=== PATIENT | male | born 1960 | race Caucasian/White ===

== ENCOUNTER → 2021-10-30 15:22 | Outpatient (CLI) | payer MEDICARE, SELFPAY ==
[2021-10-30 13:18] LABS: Amphetamine/Metha Screen,Urine Negative ng/ml (<1000); Barbiturates Screen,Urine Negative ng/ml (<200)
[2021-10-30 13:19] LABS: Benzodiazepines Screen,Urine Negative ng/ml (<200)
[2021-10-30 13:20] LABS: Cannabinoid Screen,Urine Negative ng/ml (<50); Cocaine Screen,Urine Negative ng/ml (<300)
[2021-10-30 13:21] LABS: Methadone Screen,Urine Negative ng/ml (<300)
[2021-10-30 13:22] LABS: Opiate Screen,Urine Negative ng/ml (<300); Phencyclidine Screen,Urine Negative ng/ml (<25)
== END ==
PROVIDERS: Visit Provider Emergency Medicine
DX: M51.36 Other intervertebral disc degeneration, lumbar region (principal)
CPT/HCPCS: 80305

== ENCOUNTER → 2022-02-25 10:25 | Outpatient (CLI) | payer MEDICARE, SELFPAY ==
[2022-02-25 17:54] LABS: Amphetamine/Metha Screen,Urine Negative ng/ml (<1000)
[2022-02-25 17:55] LABS: Barbiturates Screen,Urine Negative ng/ml (<200); Benzodiazepines Screen,Urine Negative ng/ml (<200)
[2022-02-25 17:56] LABS: Cannabinoid Screen,Urine Negative ng/ml (<50)
[2022-02-25 17:57] LABS: Cocaine Screen,Urine Negative ng/ml (<300); Methadone Screen,Urine Negative ng/ml (<300)
[2022-02-25 17:58] LABS: Opiate Screen,Urine Positive ng/ml (<300)
[2022-02-25 17:59] LABS: Phencyclidine Screen,Urine Negative ng/ml (<25)
== END ==
PROVIDERS: PCP Emergency Medicine; Visit Provider Emergency Medicine
DX: M51.36 Other intervertebral disc degeneration, lumbar region (principal)
CPT/HCPCS: 80305

== ENCOUNTER → 2022-03-11 06:12 | Outpatient (CLI) | payer MEDICARE, SELFPAY ==
--- NOTE | 2022-03-11 06:14 | CA_ITS ---
APPROVED REPORT EXAM: Comprehensive 2D, Doppler, and color-flow Echocardiogram Accounts Payable Or Receivable Clerk: Olga Sepulveda CRT Ht: 5 ft 10 in Wt: 218lbs BSA: 2.17 BP: 111/72 mmHg Indications: Abnormal ECG, COPD, Shortness of Breath, CAD, Hyperlipidemia, Hypertension/HDD 2D Dimensions LVOT 2.01 cm (M/F) 1.5-2.5 LA Volume 29.10 mL LA Volume Index 13.10 mL/m2 (M/F) 16-34 M-Mode Dimensions RVDd 2.41 cm (0.9-2.6) LA Diam 3.79 cm (1.9-4.0) LVDd 5.67 cm (3.5-5.7) Ao Diam 3.73 cm (2.0-3.7) LVDs 3.70 cm (3.5-5.7) IVSd 1.09 cm (0.6-1.1) PWd 0.92 cm (0.6-1.1) EF (Teich) 63.30% FS 34.70% EDV (Teich) 158.10 mL TAPSE 2.26 (<1.7) ESV (Teich) 58.10 mL LV Diastology E Decel Time 157.00 (160-240 msec) E/A Ratio 0.91 MED E' 8.20 (< 7 cm/sec) MED A' 10.80 cm/s E'/MED E' Ratio 9.27 (>14) LAT E' 7.00 (<10 cm/sec) LAT A' 11.20 cm/s E/LAT E' Ratio 10.86 (>14) Aortic Valve AI PHT 377.00 ms AO Peak GR. 9.30 mmHg Mitral Valve MV A Velocity 83.00 (40-130 cm/s) E/A Ratio 0.91 MV Decel. Time 157.00 (160-240 ms) Pulmonary Valve PV Peak Velocity 105.00 (50-150 cm/s) Tricuspid Valve TR P. Velocity 211.00 cm/s RAP Estimate 10.00 mmHg RVSP 27.90 mmHg Left Ventricle Left atrium is normal size, left ventricle is normal size, there is no concentric left ventricular hypertrophy, estimated ejection fraction 55% with no regional wall motion abnormality, diastolic parameters are within normal range. Right Ventricle Right atrium and right ventricle are normal size and contractility. Aortic Valve Aortic valve is thickened and calcified without aortic stenosis, there is trace aortic insufficiency. Mitral Valve Mitral valve grossly normal, there is trace mitral regurgitation. Tricuspid Valve Tricuspid valve grossly normal, there is trace tricuspid regurgitation, tricuspid regurgitation jet velocity is inadequate for calculation of the right ventricular systolic pressure. Pulmonic Valve Pulmonic valve is poorly visualized. Great Vessels Aortic root is normal size. Inferior vena cava is poorly visualized. Pericardium No significant pericardial effusion noted. Conclusion 1. Normal left ventricular size preserved left ventricular systolic function, estimated ejection fraction 55% with no regional wall motion abnormality, diastolic parameters are within normal range. 2. Trace mitral and tricuspid regurgitation. 3. No significant pericardial effusion noted. 4. Inferior vena cava is poorly visualized. Electronically signed by : Andrés Davis MD 03/11/2022 16:42:46
--- NOTE | 2022-03-11 06:14 | CA_ITS ---
APPROVED REPORT Exam: Pharmacologic Technologist: Sapna Faustin, Ht: 5 ft 10 in Wt: 218 lbs BSA: 2.17 m2 HR: 57 bpm BP: 119/67 mmHg Medical History Medications: Aspirin,,,,, Metoprolol,,,,, Losartan,,,,, PERCOCET,,,,, Albuterol,,,,, Nirostat,,,,, KloNOPIN,,,,, Trazodone,,,,, RoSUVASTATIN,,,,, TAMULOSIN,,,,, Hydroxyzine HCI,,,,, ANoro Ellipta,,,,, Stress Test Details Test: LEXISCAN Reason for pharmacologic stress test: physical limitation. HR Resting HR: 70 bpm Max Heart Rate (APMHR): 161 bpm Max HR Achieved: 105 bpm Target HR (85% APMHR): 136 bpm % of APMHR: 65 Recovery HR: 71 bpm BP Resting BP: 119/67 mmHg Max BP: 133/75 mmHg Recovery BP: 122.0/79.0 mmHg ECG Resting ECG: SR Clinical Exercise duration: 04:00 min Highest Stage Achieved: Exercise capacity: 1.0 METs Stress ECG Conclusion Symptoms: SOB w/ Lexiscan. No chest pain. Arrhythmias/Ectopy: None. ST-T Changes: <1.5mm ST segment depression. Conclusion: Electronically signed by : Andrés Davis MD 03/11/2022 20:54:54
--- NOTE | 2022-03-11 06:14 | NM_ITS ---
APPROVED REPORT Exam: Nuclear Stress Test Indication: SOB, Abnormal EKG, HTN, High cholesterol, Family history Patient Location: Outpatient Stress Tech: Sapna Wheeler NE Tech:Martha Stanford, ARRT, RT (R)(N) Ht: 5 ft 10 in Wt: 215 lbs HR: 70 bpm BP: 119/67 mmHg BSA: 2.15 m2 TID: 1.18 BMI: 30.8 History: SOB, Abnormal EKG, HTN, High cholesterol, Family history Procedure: Patient received a 0.4 mg of intravenous Lexiscan, resting heart rate 70 bpm, resting blood pressure 119/67 mmHg, with Lexiscan maximum heart rate achived was 105 bpm which is % of the maximum predicted heart rate and blood pressure was 133/75 mmHg. With Lexiscan, patient denied any complaint of chest pain. Electrocardiogram Resting electrocardiogram shows sinus rhythm right ventricular conduction delay, with Lexiscan there is less than 1.[address] segment depression noted from the baseline EKG. The EKG portion of the Lexiscan is nondiagnostic. Cardiac Stress and Resting SPECT Images: Cardiac Stress and Resting SPECT images were obtained using technetium 99m Myoview 29.2 mCi stress and 9.95 mCi at rest. Gated SPECT for analysis of segmental wall motion and calculation of the ejection fraction also done. Prone images were also obtained. Cardiac stress and resting SPECT images show reversible ischemia involving the inferolateral and lateral wall, computer derived ejection fraction is 51% with no regional wall motion abnormality, right ventricle is normal size and contractility. Conclusion: 1. The EKG portion of the Lexiscan is nondiagnostic. 2. Scintigraphic evidence of reversible ischemia involving the inferolateral and lateral wall, computer derived ejection fraction is 51% with no regional wall motion abnormality, right ventricle is normal size and contractility. 3. Abnormal Lexiscan Myoview study. Electronically signed by : Andrés Davis MD 03/11/2022 20:57:43
--- NOTE | 2022-03-11 08:26 | HMH.ITSHM ---
Current Home Medications as stated by this patient Rafael Verma or solar sales representative and assessor. []TRELEGY METOPROLOL LOSARTAN ASA ROSUVASTATIN TAMSULOSIN OXYCODONE CLONAZEPAM
== END ==
PROVIDERS: PCP Emergency Medicine; Visit Provider Nurse Practitioner Family
DX: E78.5 Hyperlipidemia, unspecified (principal); I10 Essential (primary) hypertension; I21.9 Acute myocardial infarction, unspecified; I25.10 Atherosclerotic heart disease of native coronary artery without angina pectoris; R06.00 Dyspnea, unspecified; R94.31 Abnormal electrocardiogram [ECG] [EKG]
CPT/HCPCS: 78452; 93017; 93306; A9502; J2785

== ENCOUNTER → 2022-03-13 09:21 | Outpatient (CLI) | payer MEDICARE, SELFPAY ==
[2022-03-13 09:39] LABS: Basophils # 0.1 K/mm3 (0-0.2); Basophils % 1.3 % (0.1-2.0); Eosinophils # 0.4 K/mm3 (0.0-0.4); Eosinophils % 4.6 % (0.1-12.0); Hemoglobin 14.3 g/dL (14.1-18.0); Lymphocytes % 23.6 % (10-50); Mean Corpuscular HGB Conc 32.5 g/dL (31.8-35.4); Mean Corpuscular Hemoglobin 29.5 pg (27.0-31.2); Mean Corpuscular Volume 90.9 fl (80-94); Monocytes # 0.5 K/mm3 (0.1-1.0); Monocytes % 5.6 % (1.7-9.3); Neutrophils # 5.6 K/mm3 (1.8-7.8); Neutrophils % 64.9 % (37.0-80.0); Platelet Count 174 K/mm3 (142-424); Red Blood Count 4.84 M/mm3 (4.60-6.20); White Blood Count 8.7 K/mm3 (4.8-10.8)
[2022-03-13 10:14] LABS: Anion Gap 13.7 mEq/L (5-15); Blood Urea Nitrogen 16 mg/dl (9-20); Calcium 9.8 mg/dl (8.4-10.2); Carbon Dioxide 32 mmol/L (22.0-30.0); Chloride 100 mmol/L (98-107); Estimated Glomerular Filt Rate 86 ml/min (>60); GFR (African American) 105 ML/MIN (>60); Glucose 72 mg/dl (74-100); Potassium 4.7 mmoL/L (3.5-5.1); Sodium 141 mmol/L (136-145)
== END ==
PROVIDERS: PCP Emergency Medicine; Visit Provider Physician Assistant
DX: E78.5 Hyperlipidemia, unspecified (principal); I10 Essential (primary) hypertension; I25.118 Atherosclerotic heart disease of native coronary artery with other forms of angina pectoris; R06.02 Shortness of breath; R94.30 Abnormal result of cardiovascular function study, unspecified; R94.31 Abnormal electrocardiogram [ECG] [EKG]
CPT/HCPCS: 36415; 80048; 85025

== ENCOUNTER 2022-03-18 08:40 | Day surgery (SDC) | payer MEDICARE, SELFPAY ==
[2022-03-18] VITALS (11 sets, daily range): BP systolic 91–145; BP diastolic 48–81; PULSE 45–65; RESP 18–20; O2SAT 90–100; BMI 31.7
--- NOTE | 2022-03-18 09:06 | IR_ITS ---
APPROVED REPORT Patient Location: Outpatient PROCEDURES Left heart catheterization Left ventriculogram Selective coronary angiogram INDICATION Abnormal Myoview, Angina pectoris Informed consent was obtained prior to the procedure. COMPLICATIONS None Estimated Blood Loss: Less than 10 mls TECHNIQUE One percent lidocaine used to anesthetize the right anterior aspect of the wrist. The right radial artery was accessed via the Seldinger technique. A 6 [place] sheath was placed in the right radial artery. 2.5 mg of verapamil, 800 mcg of nitroglycerin, 1mg Lidocaine and 5000 U Heparin were given through the arterial sheath. The papa catheter was also used to perform left heart catheterization, left ventriculogram and selective coronary angiogram. At the end of the procedure the sheath was removed good hemostasis was achieved using Traclet band, patient was transferred to the postop holding area in stable condition. ANGIOGRAPHIC RESULTS The left main artery Normal The left anterior descending artery Has mild proximal 10% luminal irregularities with remaining vessel normal The circumflex artery Nondominant with mild 10% luminal irregularities The right coronary artery Dominant with a proximal concentric 20 to 30% stenosis and a mid vessel 10% stenosis The MAIER ventriculogram reveals Normal 65% The left ventricular end-diastolic pressure 15 mmHg IMPRESSION Mild nonflow limiting coronary disease Normal ejection fraction Borderline LVEDP PLAN 1. Medical management Electronically signed by : Tim Casillas MD 03/18/2022 09:52:06
== END 2022-03-18 12:50 | disposition home or self-care (01) ==
PROVIDERS: PCP Emergency Medicine; Visit Provider Internal Medicine
DX: R94.39 Abnormal result of other cardiovascular function study (principal); I25.118 Atherosclerotic heart disease of native coronary artery with other forms of angina pectoris; Z79.899 Other long term (current) drug therapy; J44.9 Chronic obstructive pulmonary disease, unspecified; Z95.5 Presence of coronary angioplasty implant and graft
CPT/HCPCS: 93458; 99152; C1725; C1769; J1644; Q9967

== ENCOUNTER → 2022-04-15 13:02 | Outpatient (CLI) | payer MEDICARE, SELFPAY ==
--- NOTE | 2022-04-15 13:08 | CT_ITS ---
FINAL REPORT TECHNIQUE: Postcontrast axial images of the chest were performed in a CTA protocol. This study was performed with techniques to keep radiation doses as low as reasonably achievable, (ALARA). Individualized dose reduction technique using automated exposure control or adjustment of mA and/or kV according to the patient's size were employed. CLINICAL HISTORY: Lung nodules and PE FINDINGS: The heart is normal in size. No adenopathy is identified. No pleural or pericardial effusion is identified. The thoracic aorta is normal in caliber with no focal aneurysm or dissection identified. There is no filling defect to suggest pulmonary embolism. There is mild emphysema in pleural scarring. Mild atelectasis is seen. There is a ground-glass nodule in left upper lobe as well as several other, less than 5 mm nodules. Lungs are otherwise clear. The images of the upper abdomen are unremarkable. IMPRESSION: No evidence for PE on this exam. Several, less than 5 mm ground-glass nodules Reviewed, Interpreted and Dictated by Francisco J Orozco III, MD Transcribed by Patricia Ramirez Authenticated and [facility]
[2022-04-15 14:25] LABS: Blood Urea Nitrogen 15 mg/dl (9-20); Estimated Glomerular Filt Rate 69 ml/min (>60); GFR (African American) 83 ML/MIN (>60)
[2022-04-15 15:35] VITALS: PULSE 76; PULSE 80
== END ==
PROVIDERS: PCP Emergency Medicine; Visit Provider Internal Medicine Pulmonary Disease
DX: R06.09 Other forms of dyspnea (principal)
CPT/HCPCS: 36415; 71275; 82565; 84520; 94060; 94618; 94640; 94727; 94729; Q9967

== ENCOUNTER → 2022-04-22 14:08 | Outpatient (CLI) | payer MEDICARE, SELFPAY ==
[2022-04-22 14:28] LABS: Amphetamine/Metha Screen,Urine Negative ng/ml (<1000); Barbiturates Screen,Urine Negative ng/ml (<200)
[2022-04-22 14:29] LABS: Benzodiazepines Screen,Urine Negative ng/ml (<200); Cannabinoid Screen,Urine Negative ng/ml (<50)
[2022-04-22 14:30] LABS: Cocaine Screen,Urine Negative ng/ml (<300)
[2022-04-22 14:31] LABS: Methadone Screen,Urine Negative ng/ml (<300)
[2022-04-22 14:32] LABS: Opiate Screen,Urine Positive ng/ml (<300); Phencyclidine Screen,Urine Negative ng/ml (<25)
== END ==
PROVIDERS: PCP Emergency Medicine; Visit Provider Emergency Medicine
DX: M51.36 Other intervertebral disc degeneration, lumbar region (principal)
CPT/HCPCS: 80305

== ENCOUNTER → 2022-06-21 14:27 | Outpatient (CLI) | payer MEDICARE, SELFPAY ==
[2022-06-21 15:36] LABS: Amphetamine/Metha Screen,Urine Negative ng/ml (<1000); Barbiturates Screen,Urine Negative ng/ml (<200); Benzodiazepines Screen,Urine Negative ng/ml (<200); Cannabinoid Screen,Urine Negative ng/ml (<50); Cocaine Screen,Urine Negative ng/ml (<300); Methadone Screen,Urine Negative ng/ml (<300); Opiate Screen,Urine Negative ng/ml (<300); Phencyclidine Screen,Urine Negative ng/ml (<25)
== END ==
PROVIDERS: PCP Emergency Medicine; Visit Provider Emergency Medicine
DX: M51.36 Other intervertebral disc degeneration, lumbar region (principal)
CPT/HCPCS: 80305

== ENCOUNTER → 2022-08-14 08:30 | Outpatient (CLI) | payer MEDICARE, SELFPAY ==
[2022-08-14 18:34] LABS: Amphetamine/Metha Screen,Urine Negative ng/ml (<1000); Barbiturates Screen,Urine Negative ng/ml (<200)
[2022-08-14 18:36] LABS: Benzodiazepines Screen,Urine Negative ng/ml (<200)
[2022-08-14 18:37] LABS: Cannabinoid Screen,Urine Negative ng/ml (<50)
[2022-08-14 18:38] LABS: Cocaine Screen,Urine Negative ng/ml (<300); Methadone Screen,Urine Negative ng/ml (<300)
[2022-08-14 18:39] LABS: Opiate Screen,Urine Positive ng/ml (<300); Phencyclidine Screen,Urine Negative ng/ml (<25)
== END ==
PROVIDERS: PCP Emergency Medicine; Visit Provider Emergency Medicine
DX: M51.36 Other intervertebral disc degeneration, lumbar region (principal)
CPT/HCPCS: 80305

== ENCOUNTER → 2022-10-11 09:57 | Outpatient (CLI) | payer MEDICARE, SELFPAY ==
[2022-10-11 19:47] LABS: Amphetamine/Metha Screen,Urine Negative ng/ml (<1000)
[2022-10-11 19:48] LABS: Barbiturates Screen,Urine Negative ng/ml (<200); Cannabinoid Screen,Urine Negative ng/ml (<50)
[2022-10-11 19:49] LABS: Benzodiazepines Screen,Urine Negative ng/ml (<200)
[2022-10-11 19:51] LABS: Methadone Screen,Urine Negative ng/ml (<300)
[2022-10-11 19:52] LABS: Cocaine Screen,Urine Negative ng/ml (<300); Opiate Screen,Urine Positive ng/ml (<300)
[2022-10-11 19:53] LABS: Phencyclidine Screen,Urine Negative ng/ml (<25)
== END ==
PROVIDERS: PCP Emergency Medicine; Visit Provider Emergency Medicine
DX: M51.36 Other intervertebral disc degeneration, lumbar region (principal)
CPT/HCPCS: 80305

== ENCOUNTER → 2022-10-28 11:52 | Outpatient (CLI) | payer MEDICARE, SELFPAY ==
[2022-10-28 12:40] VITALS: PULSE 85; PULSE 90
== END ==
PROVIDERS: PCP Emergency Medicine; Visit Provider Internal Medicine Pulmonary Disease
DX: R06.09 Other forms of dyspnea (principal)
CPT/HCPCS: 94060; 94618; 94640; 94727; 94729

== ENCOUNTER → 2022-12-10 15:33 | Outpatient (CLI) | payer MEDICARE, SELFPAY ==
[2022-12-10 14:08] LABS: Phencyclidine Screen,Urine Negative ng/ml (<25)
[2022-12-10 14:14] LABS: Amphetamine/Metha Screen,Urine Negative ng/ml (<1000)
[2022-12-10 14:16] LABS: Benzodiazepines Screen,Urine Negative ng/ml (<200); Cannabinoid Screen,Urine Negative ng/ml (<50)
[2022-12-10 14:19] LABS: Cocaine Screen,Urine Negative ng/ml (<300); Opiate Screen,Urine Positive ng/ml (<300)
[2022-12-10 14:20] LABS: Methadone Screen,Urine Negative ng/ml (<300)
[2022-12-10 18:32] LABS: Barbiturates Screen,Urine Negative ng/ml (<200)
== END ==
PROVIDERS: PCP Emergency Medicine; Visit Provider Emergency Medicine
DX: M51.36 Other intervertebral disc degeneration, lumbar region (principal)
CPT/HCPCS: 80305

== ENCOUNTER 2023-01-27 09:00 | Outpatient (RCR) | payer MEDICARE, SELFPAY ==
--- NOTE | 2023-01-22 09:53 | HMH.PTOPEV ---
PT Outpatient Evaluation Rehab PT Outpatient Evaluation Start: 01/22/23 07:53 Freq: Status: Active Protocol: Document 01/22/23 07:55 PDESEROUX (Rec: 01/22/23 09:53 PDESEROUX [id number]) E-signed By Nolan Thompson, PT Outpatient Therapy Subjective History Subjective History Pt. is a 62 year old male who presents to [facility] in [place] for the initial evaluation this date(01/22/23) w/ c/o chronic and constant lumbar spine P!, locking up, and stiffness of insidious onset since 2006. 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 in 2006. Pt. denies any trauma-related event as VERENA to current complaint of LBP!. Pt. reports most recent diagnostic imaging in 2018 indicated lumbar spine disc pathology. Pt. denies having any steroid injections for c/o lumbar spine pain previously. Pt. denies having any surgeries related to the lumbar spine pain. Pt. reports symptoms are manageable w/ pain medicine and using a MHP when symptoms get severe. Pt. reports bending over to pick objects up off the floor worsen symptoms, states the lumbar spine will intermittently lock up. Pt. denies any numbness/tingling into neither BLEs nor saddle paresthesia/dania nor bladder dysfunction at this time. Pt. RTMD next week. Current medications include Oxycodone, Rosuvastatin, Losartan, and Metoprolol. PMH includes COPD, Myocardial Infarction x 1 in 2013, and cardiac stent placement x 1. New diagnosis of cancer in past 12 No months? Chief Complaint Pain,Spasms,Stiff,Catches/
== END 2023-03-11 10:23 | disposition home or self-care (01) ==
LOC: PT 09:00
PROVIDERS: PCP Emergency Medicine; Visit Provider Emergency Medicine
DX: M54.50 Low back pain, unspecified (principal)
CPT/HCPCS: 97010; 97014; 97110; 97140; 97163; G0283

== ENCOUNTER → 2023-01-29 11:00 | Outpatient (CLI) | payer MEDICARE, SELFPAY ==
[2023-01-29 23:49] LABS: Amphetamine/Metha Screen,Urine Negative ng/ml (<1000)
[2023-01-29 23:51] LABS: Benzodiazepines Screen,Urine Negative ng/ml (<200); Cannabinoid Screen,Urine Negative ng/ml (<50)
[2023-01-29 23:52] LABS: Cocaine Screen,Urine Negative ng/ml (<300)
[2023-01-29 23:53] LABS: Methadone Screen,Urine Negative ng/ml (<300)
[2023-01-29 23:54] LABS: Opiate Screen,Urine Positive ng/ml (<300); Phencyclidine Screen,Urine Negative ng/ml (<25)
[2023-01-30 00:09] LABS: Barbiturates Screen,Urine Negative ng/ml (<200)
== END ==
PROVIDERS: PCP Emergency Medicine; Visit Provider Emergency Medicine
DX: M51.36 Other intervertebral disc degeneration, lumbar region (principal); Z79.899 Other long term (current) drug therapy
CPT/HCPCS: 80305

== ENCOUNTER → 2023-04-21 23:17 | Outpatient (CLI) | payer MEDICARE, SELFPAY ==
[2023-04-21 21:30] LABS: Microalbumin/Creatinine Ratio 11.2
[2023-04-21 21:37] LABS: Amphetamine/Metha Screen,Urine Negative ng/ml (<1000)
[2023-04-21 21:38] LABS: Barbiturates Screen,Urine Negative ng/ml (<200); Benzodiazepines Screen,Urine Negative ng/ml (<200)
[2023-04-21 21:39] LABS: Cannabinoid Screen,Urine Negative ng/ml (<50)
[2023-04-21 21:41] LABS: Cocaine Screen,Urine Negative ng/ml (<300); Creatinine,Urine Random 246 mg/dL (Not Estab.)
[2023-04-21 21:42] LABS: Methadone Screen,Urine Negative ng/ml (<300); Opiate Screen,Urine Positive ng/ml (<300)
[2023-04-21 21:44] LABS: Phencyclidine Screen,Urine Negative ng/ml (<25)
== END ==
PROVIDERS: PCP Physician Assistant; Visit Provider Internal Medicine
DX: M54.16 Radiculopathy, lumbar region; Z79.899 Other long term (current) drug therapy
CPT/HCPCS: 80305; 82043; 82570

== ENCOUNTER → 2023-05-01 09:58 | Outpatient (CLI) | payer MEDICARE, SELFPAY ==
--- NOTE | 2023-05-01 09:58 | MR_ITS ---
FINAL REPORT CLINICAL HISTORY: chronic low back pain. NKI. Hx of DDD. COMPARISON: None FINDINGS: Multiplanar MR imaging of the lumbar spine was performed without contrast. On the sagittal T2-weighted images, there is abnormal decreased signal at L3-4 and L4-5. There is moderate loss of height at L4-5. The vertebral alignment is normal. L1-2: There is no significant canal stenosis or neural foraminal narrowing. L2-3: There is no significant canal stenosis or neural foraminal narrowing. L3-4: Mild diffuse disc bulge. Mild bilateral neuroforaminal narrowing. L4-5: Mild diffuse disc bulge. Small midline protrusion with annular tear. Mild spinal canal compromise. Mild bilateral neuroforaminal narrowing. L5-S1: There is no significant canal stenosis or neural foraminal narrowing. IMPRESSION: Disc bulges at L3-4 and L4-5 with mild bilateral neuroforaminal narrowing. Small midline protrusion with annular tear and spinal canal compromise at L4-5. Reviewed, Interpreted and Dictated by Clement Ferrer MD Transcribed by Michelle Rocha Authenticated and [facility] [place]
== END ==
LOC: RAD 09:58
PROVIDERS: PCP Physician Assistant; Visit Provider Nurse Practitioner Family
DX: M54.16 Radiculopathy, lumbar region (principal)
CPT/HCPCS: 72148; 76376

== ENCOUNTER 2023-06-02 17:53 | Outpatient (CLI) | payer MEDICARE, SELFPAY ==
[2023-06-02 17:57] LABS: Basophils % 0.1 % (0.1-2.0); Eosinophils # 0.1 K/mm3 (0.0-0.4); Eosinophils % 0.7 % (0.1-12.0); Hematocrit 45.2 % (42.0-52.0); Lymphocytes # 1.6 K/mm3 (0.7-4.5); Lymphocytes % 12.8 % (10-50); Mean Corpuscular HGB Conc 33.1 g/dL (31.8-35.4); Mean Corpuscular Volume 90.7 fl (80-94); Mean Platelet Volume 10.8 fl (7.4-10.4); Monocytes # 0.4 K/mm3 (0.1-1.0); Monocytes % 3.4 % (1.7-9.3); Neutrophils # 10.3 K/mm3 (1.8-7.8); Platelet Count 174 K/mm3 (142-424); Red Blood Count 4.99 M/mm3 (4.60-6.20); Red Cell Distribution Width 14.1 % (11.5-17.5); White Blood Count 12.4 K/mm3 (4.8-10.8)
[2023-06-02 19:49] LABS: Alanine Aminotransferase 23 U/L (12-78); Albumin Level 3.9 g/dl (3.5-5.0); Albumin/Globulin Ratio 1.4 (1.1-1.8); Alkaline Phosphatase 91 U/L (38-126); Anion Gap 12.5 mEq/L (5-15); Aspartate Amino Transferase 29 U/L (17-59); Bilirubin,Total 0.9 mg/dl (0.2-1.3); Blood Urea Nitrogen 17 mg/dl (9-20); Calcium 8.6 mg/dl (8.4-10.2); Carbon Dioxide 27 mmol/L (22.0-30.0); Chloride 105 mmol/L (98-107); Chol/HDL Ratio 2.8 (1-3.5); Cholesterol 123 mg/dl (140-200); Estimated Glomerular Filt Rate 86 ml/min (>60); GFR (African American) 104 ML/MIN (>60); Globulin 2.8 g/dL (1.3-3.2); Glucose 119 mg/dl (74-100); HDL Cholesterol 44 mg/dl (40-60); Potassium 4.5 mmoL/L (3.5-5.1); Sodium 140 mmol/L (136-145); Total Protein,Serum 6.7 g/dl (6.3-8.2); Triglycerides 119 mg/dl (30-150); VLDL Cholesterol 24 mg/dL (0-40)
[2023-06-02 22:43] LABS: 25-OH Vitamin D, Total 22.7 ng/mL (30-100)
[2023-06-02 22:56] LABS: Prostate Specific Ag Screen 0.4 ng/ml (0.0-4.0); Thyroid Stimulating Hormone 2.43 uIU/mL (0.465-4.68)
== END 2023-06-02 23:59 ==
LOC: LAB.DROPOF 17:54
PROVIDERS: PCP Student in an Organized Health Care Education/Training Program; Visit Provider Student in an Organized Health Care Education/Training Program
DX: E55.9 Vitamin D deficiency, unspecified (principal); Z12.5 Encounter for screening for malignant neoplasm of prostate; I25.10 Atherosclerotic heart disease of native coronary artery without angina pectoris; I10 Essential (primary) hypertension; Z68.32 Body mass index [BMI] 32.0-32.9, adult; Z87.891 Personal history of nicotine dependence
CPT/HCPCS: 80053; 80061; 82306; 84443; 85025; G0103

== ENCOUNTER 2023-06-11 14:46 | Outpatient (CLI) | payer MEDICARE, SELFPAY ==
[2023-06-11 15:03] LABS: Influenza A, PCR Not Detected (NotDetected); Influenza B, PCR Not Detected (NotDetected)
[2023-06-11 16:00] LABS: Coronavirus 19, PCR Detected (NotDetected)
== END 2023-06-11 23:59 ==
LOC: LAB.DROPOF 14:47
PROVIDERS: PCP Nurse Practitioner Family; Visit Provider Nurse Practitioner Family
DX: Z20.822 Contact with and (suspected) exposure to COVID-19 (principal); J02.9 Acute pharyngitis, unspecified; U07.1 COVID-19
CPT/HCPCS: 87070; 87636

== ENCOUNTER 2023-07-03 08:44 | Outpatient (CLI) | payer MEDICARE, SELFPAY ==
--- NOTE | 2023-07-03 08:44 | XR_ITS ---
FINAL REPORT CLINICAL HISTORY: osteoporosis FINDINGS: Using L1-4, the bone mineral density of the spine is 1.017 g/cm2, corresponding to T-score of -0.7 which is within the normal range. Using the left hip, the bone mineral density of the femoral neck is 0.763 g/cm2, corresponding to a T-score of -1.2 which is within the normal range. Using the right hip: The bone mineral density of the femoral neck is 0.712 g/cm2, corresponding to a T-score of -1.6 which is within the osteopenic range. FRAX 10 year fracture risk is 5.8% for a hip fracture and 0.7% for a major osteoporotic fracture. IMPRESSION: Normal bone mineral density in the lumbar spine and left hip. Osteopenic bone mineral density in the right hip. NOTE: T-score: Standard deviation compared with peak bone mass of young adult mean. *Following the recommendations of the International Society of Bone densitometry, classification of hip BMD is based on the lower of two T-scores; total hip or femoral neck. Reviewed, Interpreted and Dictated by Clement Ferrer MD Transcribed by Tasneem Mora Authenticated and [facility]
== END 2023-07-03 23:59 ==
LOC: RAD 08:44
PROVIDERS: PCP Internal Medicine; Visit Provider Internal Medicine
DX: M85.89 Other specified disorders of bone density and structure, multiple sites (principal)
CPT/HCPCS: 77080

== ENCOUNTER 2023-09-25 12:41 | Outpatient (CLI) | payer MEDICARE, SELFPAY ==
[2023-09-25 18:22] LABS: Basophils # 0.1 K/mm3 (0-0.2); Basophils % 0.6 % (0.1-2.0); Eosinophils # 0.2 K/mm3 (0.0-0.4); Eosinophils % 2.8 % (0.1-12.0); Hematocrit 45.1 % (42.0-52.0); Hemoglobin 14.5 g/dL (14.1-18.0); Lymphocytes # 2.1 K/mm3 (0.7-4.5); Lymphocytes % 25.9 % (10-50); Mean Corpuscular HGB Conc 32.1 g/dL (31.8-35.4); Mean Corpuscular Hemoglobin 29.2 pg (27.0-31.2); Mean Corpuscular Volume 90.9 fl (80-94); Mean Platelet Volume 10.7 fl (7.4-10.4); Monocytes # 0.5 K/mm3 (0.1-1.0); Monocytes % 6.5 % (1.7-9.3); Neutrophils # 5.1 K/mm3 (1.8-7.8); Neutrophils % 64.2 % (37.0-80.0); Platelet Count 159 K/mm3 (142-424); Red Blood Count 4.96 M/mm3 (4.60-6.20); Red Cell Distribution Width 14.5 % (11.5-17.5)
[2023-09-25 19:06] LABS: 25-OH Vitamin D, Total 26.5 ng/mL (30-100)
== END 2023-09-25 23:59 | disposition home or self-care (01) ==
LOC: LAB.DROPOF 09-26 12:42
PROVIDERS: PCP Internal Medicine; Visit Provider Internal Medicine
DX: E55.9 Vitamin D deficiency, unspecified (principal); Z68.31 Body mass index [BMI] 31.0-31.9, adult
CPT/HCPCS: 82306; 85025

== ENCOUNTER 2024-02-20 14:03 | Outpatient (CLI) | payer MEDICARE, SELFPAY ==
--- NOTE | 2024-02-20 14:07 | CT_ITS ---
FINAL REPORT TECHNIQUE: Thin section axial images were obtained from the lung apices to the upper abdomen by computed tomography. Reformatted images were obtained and reviewed. This study was performed with techniques to keep radiation doses al low as reasonably achievable (ALARA). Individualized dose reduction techniques using automated exposure control or adjustment of mA and/or kV according to the patient's size were employed. CLINICAL HISTORY: FORMER SMOKER QUIT 10 YEARS AGO, 2PPD X35 YEARS COMPARISON: CTA chest dated 04/15/2022 FINDINGS: CHEST CT LOW DOSE CTDI vol (mGy): 2.90 DLP (mGy-cm): 99.25 There is no axillary adenopathy. There is no mediastinal or hilar mass or adenopathy. There are moderate coronary artery calcifications. Prominent left ventricle subendocardial fat likely represents sequela of prior myocardial infarction. There is no pericardial or pleural effusion. There is mild emphysema and mild pulmonary scarring. Lung window images demonstrate interval improvement in groundglass nodule seen on the prior exam. Clustered, less than 5 mm, nodules in the lateral right midlung are stable. There is no new mass or nodule. Limited images of the upper abdomen are unremarkable. IMPRESSION: Lung-RADS category 2. Recommend 12 month follow up low dose chest CT. Reviewed, Interpreted and Dictated by Francisco J Orozco III, MD Transcribed by Tasneem Mora Authenticated and [facility]
== END 2024-02-20 23:59 | disposition home or self-care (01) ==
LOC: RAD 14:04
PROVIDERS: PCP Internal Medicine; Visit Provider Internal Medicine
DX: Z87.891 Personal history of nicotine dependence (principal)
CPT/HCPCS: 71271

== ENCOUNTER 2024-03-14 10:49 | Emergency (ER) | payer MEDICARE, SELFPAY ==
[2024-03-14] VITALS (7 sets, daily range): BP systolic 104–177; BP diastolic 61–85; PULSE 59–88; RESP 16–18; TEMP 36.6–36.7; O2SAT 93–97; BMI 32.3
--- NOTE | 2024-03-14 11:10 | PC.NURSE ---
DR FRANKLIN AT BEDSIDE
[2024-03-14 11:17] LABS: Microscopic, Urine URINE MICROSCOPIC (MICROSCOPIC)
[2024-03-14 11:18] LABS: Appearance,Urine CLEAR (Clear); Bilirubin,Urine Negative (Negative); Blood, Urine Negative (Negative); Color,Urine YELLOW (Yellow); Glucose,Urine (UA) Negative (Negative); Ketones,Urine Negative (Negative); Leukocyte Esterase,Urine Negative (Negative); Nitrate,Urine Negative (Negative); PH,Urine 7.5 (5.0-8.5); Protein,Urine Negative (Negative); Specific Gravity, Urine 1.025 (1.005-1.030)
--- NOTE | 2024-03-14 11:22 | CT_ITS ---
PROCEDURE INFORMATION: Exam: CT Lumbar Spine Without Contrast Exam date and time: 03/14/2024 12:55 PM Age: 63 years old Clinical indication: Low back pain; Additional info: Low back pain, new TECHNIQUE: Imaging protocol: Computed tomography of the lumbar spine without contrast. Radiation optimization: All CT scans at this facility use at least one of these dose optimization techniques: automated exposure control; mA and/or kV adjustment per patient size (includes targeted exams where dose is matched to clinical indication); or iterative reconstruction. COMPARISON: MR LUMBAR SPINE WO CON 05/01/2023 9:58 AM FINDINGS: Bones/joints: No acute fracture. No bone lesions. Normal alignment. Sacroiliac joints are well preserved with no erosions. L1-L2: No significant disc bulge or herniation. No severe spinal canal stenosis. No significant neural foraminal narrowing. L2-L3: No significant disc bulge or herniation. No severe spinal canal stenosis. No significant neural foraminal narrowing. L3-L4: No significant disc bulge or herniation. No severe spinal canal stenosis. No significant neural foraminal narrowing. L4-L5: Concentric disc bulge. No severe spinal canal stenosis. No significant neural foraminal narrowing. Moderate disc space narrowing L5-S1: No significant disc bulge or herniation. No severe spinal canal stenosis. No significant neural foraminal narrowing. Vasculature: [id number] atherosclerotic calcifications. Soft tissues: No paraspinal or retroperitoneal masses. IMPRESSION: 1. No acute findings in the lumbar spine. 2. Disc space narrowing and concentric disc bulge at L4-L5 causes no significant mass effects.
--- NOTE | 2024-03-14 11:22 | CT_ITS ---
PROCEDURE INFORMATION: Exam: CTA Abdomen and Pelvis With Contrast Exam date and time: 03/14/2024 12:58 PM Age: 63 years old Clinical indication: Abdominal pain; Other: Left; Additional info: Low back pain, worse on L side, severe constant TECHNIQUE: Imaging protocol: Computed tomographic angiography of the abdomen and pelvis with contrast. Exam focused on the arteries. 3D rendering (Not supervised by radiologist): MIP and/or 3D reconstructed images were created by the technologist. Radiation optimization: All CT scans at this facility use at least one of these dose optimization techniques: automated exposure control; mA and/or kV adjustment per patient size (includes targeted exams where dose is matched to clinical indication); or iterative reconstruction. Contrast material: ISOVUE 370; Contrast volume: 80 ml; Contrast route: INTRAVENOUS (IV); COMPARISON: CT ANGIO CHEST PE PROTOCOL 04/15/2022 2:32 PM FINDINGS: Lungs: Calcified granuloma in the left lower lobe. No noncalcified lung nodules or airspace consolidation. Pleural spaces: No pleural effusions. Aorta: No aortic aneurysm. No aortic dissection. Celiac trunk and mesenteric arteries: No occlusion or significant stenosis. Renal arteries: No occlusion or significant stenosis. Right iliac arteries: No occlusion or significant stenosis. Left iliac arteries: No occlusion or significant stenosis. Liver: No mass. Gallbladder and biliary ducts: No calcified stones. No ductal dilation. Pancreas: No mass. No ductal dilation. Spleen: No splenomegaly. No mass or surrounding fluid. Adrenal glands: No mass. Kidneys and ureters: No solid mass. No calcified stones or hydronephrosis. Stomach and bowel: No intestinal masses, bowel wall thickening, or abnormal luminal dilatation. Appendix: No evidence of appendicitis. Intraperitoneal space: No free air. No significant fluid collection. Lymph nodes: No enlarged lymph nodes. Urinary bladder: No asymmetric bladder wall thickening or enhancement. Reproductive: No abnormalities as visualized. Bones/joints: No acute fracture or focal bone lesions. Soft tissues: No soft tissue masses. IMPRESSION: No acute findings in the abdomen and pelvis. No arterial stenoses or occlusions.
--- NOTE | 2024-03-14 11:24 | ED_ITS ---
Discharge Plan Disposition Patient Disposition: Home, Self-Care Condition: Good Prescriptions Prescriptions: New prednisone 20 mg tablet 40 mg PO DAILY 4 Days Qty: 8 0RF Rx Instructions: You were given your first dose today 03/14/24, so do not take again until 03/15/24. methocarbamol 750 mg tablet 750 mg PO Q8H PRN (Reason: pain) Qty: 20 0RF naproxen 500 mg tablet 500 mg PO BID Qty: 20 0RF No Action aspirin [Adult Aspirin Regimen] 81 mg tablet,delayed release (DR/EC) 81 mg PO DAILY ipratropium-albuterol 0.5 mg-3 mg(2.5 mg base)/3 mL solution for nebulization 3 ml inhalation QID PRN (Reason: shortness of breath or wheezing) Qty: 180 3RF albuterol sulfate 90 mcg/actuation HFA aerosol inhaler 1 inh IH QID fexofenadine [Emily Allergy] 60 mg tablet 60 mg PO BID losartan 50 mg tablet 50 mg PO BID 30 Days Qty: 60 0RF montelukast 10 mg tablet PO famotidine 40 mg tablet PO oxycodone-acetaminophen 10-325 mg tablet 1 tab PO QID Qty: 120 0RF cholecalciferol (vitamin D3) 25 mcg (1,000 unit) capsule 25 mcg PO DAILY Qty: 30 2RF nitroglycerin [Nitrostat] 0.4 mg tablet, sublingual 0.4 mg SUBLINGUAL Q5M PRN (Reason: chest pain) Qty: 30 2RF Rx Instructions: do not exceed 3 doses per episode metoprolol tartrate 25 mg tablet See Rx Instructions .ROUTE .COMPLEX Qty: 90 2RF Dose Instruction: TAKE 1/2 TABLET BY MOUTH TWICE DAILY Rx Instructions: TAKE 1/2 TABLET BY MOUTH TWICE DAILY rosuvastatin 40 mg tablet See Rx Instructions .ROUTE .COMPLEX Qty: 90 0RF Dose Instruction: TAKE 1 TABLET BY MOUTH AT BEDTIME Rx Instructions: TAKE 1 TABLET BY MOUTH AT BEDTIME Referrals Follow up/Referrals: Cody Pastrana DO [Primary Care Provider] - See instructions Activity Restrictions/Add. Instructions Additional Instructions/Restrictions: You were evaluated in the emergency department today. Please pharmacy picking technician the prescriptions at the pharmacy and take them as prescribed. You may also take Tylenol every 4-6 hours at home as needed for pain. Follow-up closely with your primary care provider. Return to the emergency department right away for new or worsening symptoms such as numbness and tingling in your groin, inability to control your bladder or bowels, or new other concerns. Clinical Impressions Clinical Impression: Low back pain, Herniation of intervertebral disc between L4 and L5 Stand Alone Forms Stand Alone Forms: Work/School Release Instructions Patient Instructions: DI for Low Back Pain, DI for Herniated Disc Print Language Print Language: Moldovan Discharge ED Provider: Florecita Fields General Adult HPI General Chief complaint: Back Pain/Injury Stated complaint: back pain x 1 week Time Seen by Provider: 03/14/24 10:54 Mode of Arrival: Ambulatory Source of Information: Patient Limitations: No Limitations Description of Symptoms (Recalled from ER Triage Doc. by RN): Patient reports history of back problems, however approx 2 weeks ago he states he threw his back out. States he normally has pain in the center of his back but that this is more to the left side and down his leg. History of Present Illness HPI narrative: This patient is a 63-year-old male with a history of prior kidney stones, degenerative disc disease with chronic back pain, GREGORY, COPD presented to the emergency department for evaluation with concern for severe left-sided low back pain. He notes that he has had chronic back pain which is typically always in the middle of his back and is nonradiating, however this pain has localized more to his left side. He notes that it started about 2 weeks ago when he believes he might of thrown his back out, but it has been persistent and severe. It does not seem to be positional or change with movement. He denies any numbness, tingling, saddle anesthesia, urinary incontinence, retention, or other concerns. No fevers, chills, or infectious symptoms. Related Data Home Medications ?Medication ?Instructions ?Recorded ?Confirmed aspirin 81 mg tablet,delayed 81 mg PO DAILY CAD 07/09/21 03/01/24 release (Adult Aspirin Regimen) albuterol sulfate 90 mcg/actuation 1 inh inhalation QID Breathing 10/30/21 03/01/24 aerosol inhaler problems fexofenadine 60 mg tablet (Emily 60 mg PO BID 12/22/23 03/01/24 Allergy) famotidine 40 mg tablet mg PO 02/11/24 03/01/24 montelukast 10 mg tablet mg PO 02/11/24 03/01/24 Previous Rx's ?Medication ?Instructions ?Recorded ipratropium 0.5 mg-albuterol 3 mg 3 ml inhalation QID PRN shortness 05/19/23 (2.5 mg base)/3 mL nebulization of breath or wheezing #180 mL soln cholecalciferol (vitamin D3) 25 25 mcg PO DAILY #30 caps 06/03/23 mcg (1,000 unit) capsule nitroglycerin 0.4 mg sublingual 0.4 mg sublingual Q5M PRN chest 11/06/23 tablet (Nitrostat) pain #30 tabs metoprolol tartrate 25 mg tablet See Rx Instructions .Route 12/09/23 .COMPLEX #90 tabs rosuvastatin 40 mg tablet See Rx Instructions .Route 01/21/24 .COMPLEX #90 tabs losartan 50 mg tablet 50 mg PO BID 30 days #60 tabs 01/28/24 oxycodone-acetaminophen 10 mg-325 1 tab PO QID Pain #120 tabs 03/01/24 mg tablet methocarbamol 750 mg tablet 750 mg PO Q8H PRN pain #20 tabs 03/14/24 naproxen 500 mg tablet 500 mg PO BID #20 tabs 03/14/24 prednisone 20 mg tablet 40 mg (2 x 20 mg) PO DAILY 4 days 03/14/24 #8 tabs Allergies Allergy/AdvReac Type Severity Reaction Status Date / Time Sulfa (Sulfonamide Allergy Intermediate Rash Verified 03/01/24 10:40 Antibiotics) [facility] Disclaimer: The information contained in this section may have been updated after the patient was seen, as this information can be updated by other users. Medical History COPD exacerbation History of 2019 novel coronavirus disease (COVID-19) Chronic cough Pulmonary fibrosis, unspecified Restrictive lung disease Multiple pulmonary nodules Screening for lung cancer COPD mixed type History of smoking 30 or more pack years Dyspnea on exertion Abnormal result of cardiovascular function study Coronary artery disease Abnormal electrocardiogram [ECG] [EKG] COPD (chronic obstructive pulmonary disease) Hypertension Heart attack Surgical History History of heart artery stent Hx of cardiac cath Family History Other COPD (chronic obstructive pulmonary disease) Social History Smoking Status: Never smoker smoking status stop date: 2013 alcohol intake: never substance use type: denies use current occupational status: disabled Travel in the last 8 weeks: Inside the [place] Other Medical History Have you received the Pneumonia Vaccine: Yes ROS Obtained: Yes All systems reviewed & no additional complaints except as documented Physical Exam General General appearance: alert and in no apparent distress Head Head exam: atraumatic and normocephalic Eye Eye exam: Present normal appearance, PERRL and EOMI ENT ENT exam: Present normal exam, normal oropharynx, mucous membranes moist and normal external ear exam Neck Neck exam: Present normal inspection, full ROM and trachea midline; Absent tenderness Chest Chest inspection: Present normal inspection and symmetric chest wall rise; Absent tenderness Respiratory Respiratory exam: Present normal lung sounds bilaterally; Absent respiratory distress, wheezes, stridor or accessory muscle use Cardiovascular Cardiovascular exam: Present regular rate and normal rhythm Abdominal Exam Abdominal exam: Present soft; Absent distention, tenderness or guarding Extremities Exam Extremities exam: Present normal inspection, full ROM and normal capillary refill; Absent tenderness or edema Back Exam Back exam: Present normal inspection, full ROM and CVA tenderness (L); Absent tenderness, muscle spasm, paraspinal tenderness or vertebral tenderness Neurological Exam Neurological exam: Present alert, oriented X3, CN II-XII intact and normal gait; Absent motor sensory deficit Psychiatric Psychiatric exam: Present normal affect and normal mood Skin Skin exam: Present warm and dry Medical Decision Making Medical Records Medical records reviewed: Yes I reviewed the patient's medical records. Screening: Per USPSTF and CDC recommendations, given the prevalence of disease in our region, it is our hospital?s policy to screen for HIV and viral Hepatitis for all patients aged 18 and over and those with ongoing risk factors. Pritesh Inquiry Pt receiving controlled substance: No Vital Signs: 03/14/24 10:50 03/14/24 11:23 03/14/24 11:30 Temperature 97.9 F Temperature Source Oral Pulse Rate 74 71 Pulse Rate [Radial] 88 Respiratory Rate 16 Blood Pressure 139/84 130/82 Blood Pressure [Right Arm] 177/85 H Blood Pressure Mean 102 Blood Pressure Mean [Right Arm] 115 Blood Pressure Source Blood Pressure Source [Right Arm] Automatic Cuff Blood Pressure Position Blood Pressure Position [Right Arm] Sitting 02 Sat by Pulse Oximetry 96 97 95 Oxygen Delivery Method Room Air Room Air Room Air 03/14/24 12:23 03/14/24 12:31 03/14/24 13:00 Temperature Temperature Source Pulse Rate 68 59 L 68 Pulse Rate [Radial] Respiratory Rate 18 18 Blood Pressure 140/79 115/72 108/61 L Blood Pressure [Right Arm] Blood Pressure Mean 99 88 Blood Pressure Mean [Right Arm] Blood Pressure Source Blood Pressure Source [Right Arm] Blood Pressure Position Blood Pressure Position [Right Arm] 02 Sat by Pulse Oximetry 95 93 L 95 Oxygen Delivery Method Room Air 03/14/24 13:40 Temperature 98.0 F Temperature Source Oral Pulse Rate 65 Pulse Rate [Radial] Respiratory Rate 16 Blood Pressure 104/76 L Blood Pressure [Right Arm] Blood Pressure Mean Blood Pressure Mean [Right Arm] Blood Pressure Source Automatic Cuff Blood Pressure Source [Right Arm] Blood Pressure Position Sitting Blood Pressure Position [Right Arm] 02 Sat by Pulse Oximetry Oxygen Delivery Method Room Air Lab Data Lab results reviewed: Yes I reviewed the patient's lab results. Lab Results 03/14/24 10:55: Urine Color Yellow, Urine Appearance Clear, Urine pH 7.5, Ur Specific [place] 1.025, Urine Protein Negative, Urine Glucose (UA) Negative, Urine Ketones Negative, Urine Blood Negative, Urine Nitrate Negative, Urine Bilirubin Negative, Urine Urobilinogen 1.0, Ur Leukocyte Esterase Negative, Urine RBC None, Urine WBC None, Ur Squamous Epith Cells Occasional, Urine Bacteria Trace 03/14/24 11:20: WBC 7.2, RBC 4.98, Hgb 14.7, Hct 42.5, MCV 85.5, MCH 29.5, MCHC 34.5, RDW 13.9, Plt Count 168, MPV 8.7, Neut % (Auto) 58.3, Lymph % (Auto) 28.7, [place] % (Auto) 7.8, Eos % (Auto) 4.0, Baso % (Auto) 1.2, Neut # (Auto) 4.2, Lymph # (Auto) 2.1, [place] # (Auto) 0.6, Eos # (Auto) 0.3, Baso # (Auto) 0.1, Sodium 141, Potassium 5.0, Chloride 105, Carbon Dioxide 32 H, Anion Gap 9.0, BUN 15, Creatinine 1.20, Estimated Creat Clear 93, Estimated GFR 62, Est GFR ( Amer) 74, Glucose 122 H, Calcium 9.1, Total Bilirubin 0.6, AST 28, ALT 22, Alkaline Phosphatase 82, Total Protein 7.0, Albumin 4.1, Globulin 2.9, Albumin/Globulin Ratio 1.4, Lipase 48, HIV 1&2 Antibody Rapid Nonreactive 03/14/24 11:20 03/14/24 11:20 Orders (Tests/Meds): ED MEDICATIONS Discontinued Medications Generic Name Dose Route Start Last Admin Trade Name Chuckyq PRN Reason Stop Dose Admin Acetaminophen 1,000 mg 03/14/24 11:13 03/14/24 11:25 Acetaminophen 500mg Tab PO 03/14/24 11:14 1,000 mg ONCE ONE Administration Diazepam 5 mg 03/14/24 13:11 03/14/24 13:17 Diazepam 5mg Tablet PO 03/14/24 13:12 5 mg ONCE ONE Administration Iopamidol 80 ml 03/14/24 12:04 03/14/24 12:04 Iopamidol-370 (76%);100ml Bottle IV 03/14/24 12:05 80 ml ONCE ONE Administration Ketorolac Tromethamine 15 mg 03/14/24 11:13 03/14/24 11:25 Ketorolac 30mg/Ml Vial IV 03/14/24 11:14 15 mg ONCE ONE Administration Lidocaine 1 each 03/14/24 11:13 03/14/24 11:25 Lidocaine 5% Transdermal Patch TP 03/14/24 11:14 1 each ONCE ONE Administration Morphine Sulfate 4 mg 03/14/24 12:09 03/14/24 12:19 Morphine 4mg/Ml Syringe IV 03/14/24 12:10 4 mg ONCE ONE Administration Ondansetron HCl 4 mg 03/14/24 12:09 03/14/24 12:19 Ondansetron 4mg/2ml Vial IV 03/14/24 12:10 4 mg ONCE ONE Administration Prednisone 40 mg 03/14/24 13:11 03/14/24 13:17 Prednisone 20mg Tab PO 03/14/24 13:12 40 mg ONCE ONE Administration Sodium Chloride 10 ml 03/14/24 12:04 03/14/24 12:04 Sodium Chloride 0.9% 10ml Syr (Rad Only) IV 03/14/24 12:05 10 ml ONCE ONE Administration Sodium Chloride 50 ml 03/14/24 12:04 03/14/24 12:04 0.9 % Sodium Chloride 50 Ml Vial IV 03/14/24 12:05 50 ml ONCE ONE Administration ORDERS Category Date Time Status CT angio abdomen pelvis Stat Cat Scan 03/14/24 11:[address] lumbar spine wo con Stat Cat Scan 03/14/24 11:22 Completed CBC w/Auto Diff [Complete Blood Count Auto Diff] Stat Lab 03/14/24 11:20 Completed CMP [Comprehensive Metabolic Panel] Stat Lab 03/14/24 11:20 Completed HIV (1&2) Antibody Rapid Stat Lab 03/14/24 11:20 Completed Hep C Ab with Reflex to RNA Stat Lab 03/14/24 11:20 Received Lipase Stat Lab 03/14/24 11:20 Completed UA [Urinalysis and Microscopic] Stat Lab 03/14/24 10:55 Completed Medical Decision Narrative: In summary, this patient is a 63-year-old male presenting to the Emergency Department for evaluation of severe left-sided low back pain that is constant and not positional. Differential diagnoses considered include but are not limited to musculoskeletal strain/sprain, contusion, disc herniation, compression fracture, ureterolithiasis, pyelonephritis, colitis, aortic pathology. Ruling out the most morbid conditions drove assessment. It should be noted patient's history includes COPD, smoking history, degenerative disc disease which likely are not at goal therapy. This complicates all aspects of care by increasing patient's risk for morbidity. On exam, the patient is sitting upright in bed and is uncomfortable appearing. His pain is not reproducible with palpation or movements. He is neurologically intact in his lower extremities with no motor or sensory deficits. it is possible this is all musculoskeletal, however he does have risk factors for vascular pathology and also has a history of kidney stones. Given that the pain is not reproducible with palpation and also does not seem to change with movement, will obtain CT scans to evaluate for other potential causes. Workup included CBC, CMP, lipase, urinalysis, CTA abdomen and pelvis, CT lumbar spine without contrast. He was given IV Toradol, oral Tylenol, topical Lidoderm patch for symptomatic improvement. I independently interpreted CT scans prior to the radiologist read and noted L4/5 disc herniation but no obvious vascular pathology and no obvious obstructive uropathy. Please see their read for final interpretation. Labs were obtained that demonstrated no acutely concerning abnormalities with normal kidney function, no hematuria, no concerns for urinary tract infection. On reassessment, patient had no improvement after administration of interventions above. He complains of continued severe pain. I did give him IV morphine, which did help some with his pain. Ultimately given that I feel it is likely musculoskeletal, I did opt to treat with oral Valium as a muscle relaxer as well as prednisone. Patient did have good improvement after all of these interventions and is able to ambulate and remains neurologically intact. Given this, I do feel that he is appropriate discharge home with prescriptions for prednisone and Robaxin to treat disc herniation with lumbar radiculopathy. He was given instructions for close follow-up with primary care as well as strict return precautions. He was discharged after all questions were answered Critical Care Critical Care Time Critical Care Time: No
[2024-03-14] MEDS: LIDOCAINE 5% TRANSDERMAL PATCH 1 EACH TP (11:25)
[2024-03-14] MEDS: KETOROLAC 30MG/ML VIAL 15 MG IV (11:25)
[2024-03-14] MEDS: ACETAMINOPHEN 500MG TAB 1000 MG PO (11:25)
[2024-03-14 11:30] LABS: Basophils # 0.1 K/mm3 (0-0.2); Basophils % 1.2 % (0.1-2.0); Eosinophils # 0.3 K/mm3 (0.0-0.4); Hematocrit 42.5 % (42.0-52.0); Hemoglobin 14.7 g/dL (14.1-18.0); Lymphocytes # 2.1 K/mm3 (0.7-4.5); Lymphocytes % 28.7 % (10-50); Mean Corpuscular HGB Conc 34.5 g/dL (31.8-35.4); Mean Corpuscular Hemoglobin 29.5 pg (27.0-31.2); Mean Corpuscular Volume 85.5 fl (80-94); Mean Platelet Volume 8.7 fl (7.4-10.4); Monocytes # 0.6 K/mm3 (0.1-1.0); Monocytes % 7.8 % (1.7-9.3); Neutrophils # 4.2 K/mm3 (1.8-7.8); Neutrophils % 58.3 % (37.0-80.0); Platelet Count 168 K/mm3 (142-424); Red Blood Count 4.98 M/mm3 (4.60-6.20); Red Cell Distribution Width 13.9 % (11.5-17.5); White Blood Count 7.2 K/mm3 (4.8-10.8)
[2024-03-14 11:31] LABS: Bacteria,Urine Trace /lpf; Squamous Epithelial Cell,Urine Occasional #/hpf (0-5)
[2024-03-14 11:35] LABS: Albumin Level 4.1 g/dl (3.5-5.0); Chloride 105 mmol/L (98-107); Sodium 141 mmol/L (136-145)
[2024-03-14 11:37] LABS: Alanine Aminotransferase 22 U/L (12-78); Aspartate Amino Transferase 28 U/L (17-59); Blood Urea Nitrogen 15 mg/dl (9-20); Creatinine Clearance Estimated 93 mL/min (50-200); Estimated Glomerular Filt Rate 62 ml/min (>60); GFR (African American) 74 ML/MIN (>60)
[2024-03-14 11:38] LABS: Albumin/Globulin Ratio 1.4 (1.1-1.8); Alkaline Phosphatase 82 U/L (38-126); Bilirubin,Total 0.6 mg/dl (0.2-1.3); Calcium 9.1 mg/dl (8.4-10.2); Carbon Dioxide 32 mmol/L (22.0-30.0); Globulin 2.9 g/dL (1.3-3.2); Glucose 122 mg/dl (74-100); Lipase 48 U/L (23-300)
[2024-03-14 12:02] LABS: HIV (1&2) Antibody Rapid NONREACTIVE (NONREACTIVE)
[2024-03-14] MEDS: SODIUM CHLORIDE 0.9% 10ML SYR (RAD ONLY) 10 ML IV (12:04)
[2024-03-14] MEDS: IOPAMIDOL-370 (76%);100ML BOTTLE 80 ML IV (12:04)
[2024-03-14] MEDS: 0.9 % SODIUM CHLORIDE 50 ML VIAL IV (12:04)
--- NOTE | 2024-03-14 12:05 | PC.NURSE ---
FAMILY AT NURSES STATION FOR PT. NURSE AT BEDSIDE. PT SHAKING, REPORTS INCREASED LEFT SIDED PAIN
--- NOTE | 2024-03-14 12:08 | PC.NURSE ---
DR FRANKLIN AT BEDSIDE TO EVALUATE PT
[2024-03-14] MEDS: MORPHINE 4MG/ML SYRINGE 4 MG IV (12:19)
[2024-03-14] MEDS: ONDANSETRON 4MG/2ML VIAL 4 MG IV (12:19)
[2024-03-14] MEDS: diazePAM 5MG TABLET 5 MG PO (13:17)
[2024-03-14] MEDS: predniSONE 20MG TAB 40 MG PO (13:17)
[2024-03-16 05:10] LABS: HCV Ab Non Reactive (Non Reactive)
== END 2024-03-14 13:41 | disposition home or self-care (01) ==
PROVIDERS: Emergency Provider Emergency Medicine; PCP Internal Medicine
DX: M51.26 Other intervertebral disc displacement, lumbar region (principal)
CPT/HCPCS: 72131; 74174; 80053; 81001; 83690; 85025; 86803; 87389; 96374; 96375; 99285; J1885; J2270; J2405; Q9967

== ENCOUNTER 2024-04-12 08:31 | Outpatient (POV) | payer MEDICARE, SELFPAY ==
[2024-04-12 09:00] VITALS: BP 138/77; PULSE 69; RESP 18; O2SAT 96; BMI 31.5
--- NOTE | 2024-04-12 09:41 | EXP.PAIN.OV ---
HPI Data of Consult Patient: new to practice Consult date: 04/12/24 Requesting Physician: Florecita Smith APRN Primary Care Provider: Cody Pastrana DO Consult Narrative Reason for consult: low back pain History of present illness: Mr. Verma is a 63 year old male who presents today as a new patient. He is a referral from Dr. Magaña's office. Today he rates his pain a 7 out of 10. He states he has had chronic low back pain and denies any radiating symptoms into his legs for more than 14 years. Patient denies any specific trauma or injury that initially started this. 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 Patient states it is a constant throbbing sensation that is worse with certain movements such as bending and twisting. Patient states that it does interfere with his ability perform activities of daily living such as cooking and cleaning. Patient has tried Tylenol and ibuprofen along with heat and ice and topicals with minimal relief. Patient is currently on Percocet 10 mg 4 times a day from an outside provider. He states that he has had physical therapy and continued at home stretching exercise for longer than 12 weeks with no additional changes. Patient denies any prior chiropractor therapy. Patient was saw by neurosurgery in the past and was not being recommended for back surgery. He denies any back surgery history. Patient does state that his primary care has done injections in the past however he is unsure exactly what they were. His Pritesh has been reviewed and is appropriate. CC: Florecita Smith APRN [facility] Disclaimer: The information contained in this section may have been updated after the patient was seen, as this information can be updated by other users. Medical History (Updated 04/12/24 @ 09:45 by Florecita Smith APRN) Lung nodule COPD exacerbation History of 2019 novel coronavirus disease (COVID-19) Chronic cough Pulmonary fibrosis, unspecified Restrictive lung disease Multiple pulmonary nodules Screening for lung cancer COPD mixed type History of smoking 30 or more pack years Dyspnea on exertion Abnormal result of cardiovascular function study Coronary artery disease Abnormal electrocardiogram [ECG] [EKG] COPD (chronic obstructive pulmonary disease) Hypertension Heart attack Surgical History History of heart artery stent Hx of cardiac cath Family History Other COPD (chronic obstructive pulmonary disease) Social History Smoking Status: Never smoker smoking status stop date: 2013 alcohol intake: never substance use type: denies use current occupational status: other Review of Systems Review of Systems Review of systems:: pertinent systems reviewed and negative unless documented below Review of systems (narrative): Review of Systems: General: No recent weight changes, no fever, no sleep disturbances Respiratory: No cough, no shortness of air, no recurring pulmonary infections Cardiovascular/peripheral vascular: No chest pain, no palpitations, no edema, no shortness of breath Gastrointestinal: No new onset incontinence, normal bowel movements reported Genitourinary: No new onset incontinence Musculoskeletal: Low back pain Psychiatric: [Normal mood/affect] Neurological: [Denies weakness in extremities], [denies balance issues] Meds Home Medications and Allergies Home Medications ?Medication ?Instructions ?Recorded ?Confirmed ?Type aspirin 81 mg tablet,delayed 81 mg PO DAILY CAD 07/09/21 04/12/24 History release (Adult Aspirin Regimen) albuterol sulfate 90 mcg/actuation 1 inh inhalation QID Breathing 10/30/21 04/12/24 History aerosol inhaler problems ipratropium 0.5 mg-albuterol 3 mg 3 ml inhalation QID PRN shortness 05/19/23 04/12/24 Rx (2.5 mg base)/3 mL nebulization of breath or wheezing #180 mL soln cholecalciferol (vitamin D3) 25 25 mcg PO DAILY #30 caps 06/03/23 04/12/24 Rx mcg (1,000 unit) capsule nitroglycerin 0.4 mg sublingual 0.4 mg sublingual Q5M PRN chest 11/06/23 04/12/24 Rx tablet (Nitrostat) pain #30 tabs fexofenadine 60 mg tablet (Emily 60 mg PO BID 12/22/23 04/12/24 History Allergy) rosuvastatin 40 mg tablet See Rx Instructions .Route 01/21/24 04/12/24 Rx .COMPLEX #90 tabs famotidine 40 mg tablet 40 mg PO DAILY 02/11/24 04/12/24 History montelukast 10 mg tablet 10 mg PO DAILY 02/11/24 04/12/24 History cyclobenzaprine 10 mg tablet 10 mg PO TID #90 tabs 03/15/24 04/12/24 Rx oxycodone-acetaminophen 10 mg-325 1 tab PO QID Pain #120 tabs 04/01/24 04/12/24 Rx mg tablet losartan 50 mg tablet 50 mg PO DIRECTED 04/12/24 04/12/24 History metoprolol tartrate 25 mg tablet 25 mg PO DIRECTED 04/12/24 04/12/24 History New Prescriptions to Start Prescriptions: Allergies Allergy/AdvReac Type Severity Reaction Status Date / Time Sulfa (Sulfonamide Allergy Intermediate Rash Verified 03/15/24 14:31 Antibiotics) Objective Vital signs: Pulse Resp BP Pulse Ox O2 Del Method 69 18 138/77 96 Room Air 04/12/24 09:00 04/12/24 09:00 04/12/24 09:00 04/12/24 09:00 04/12/24 09:00 Narrative: Physical Exam: General: Alert and oriented x3, no acute distress, pleasant and cooperative Lungs: Respirations even and unlabored, symmetrical chest expansion Eyes: PERRL Musculoskeletal: Flexion and extension of lumbar [spine] somewhat guarded secondary to pain, [antalgic gait noted] positive Kemps test Neurological: Speech clear, no gross sensory deficit Assessment and Plan *Assessment and plan (1) DDD (degenerative disc disease), lumbar: Status: Acute Category: Medical Code(s): M51.36 - Other intervertebral disc degeneration, lumbar region (2) Lumbar facet arthropathy: Status: Acute Category: Medical Code(s): M47.816 - Spondylosis without myelopathy or radiculopathy, lumbar region (3) Low back pain: Status: Acute Qualifiers: Chronicity: chronic Back pain laterality: midline Sciatica presence: without sciatica Qualified Code(s): M54.50 - Low back pain, unspecified; G89.29 - Other chronic pain Category: Medical Code(s): M54.50 - Low back pain, unspecified Plan Patient is experiencing significant pain throughout his low back with limited range of motion of his lumbar spine and a positive Kemps test. Patient was reported reviewed over that I do believe he would benefit from a lumbar medial branch block. Risk and benefits were discussed with the patient and he would like to proceed forward with this plan of care. Patient has tried and failed conservative therapy including continued at home stretching exercise for longer than 12 weeks and previous physical therapy. Patient was counseled if he does get significant relief with his first lumbar medial branch block we will plan on repeating this with the plan to do a lumbar RFA at a later date. Patient agrees with this plan of care. Patient will be scheduled for his first lumbar medial branch block bilaterally L4-L5 and L5-S1 under fluoroscopy. Patient has been instructed to contact the clinic with any concerns before the next appointment. Dr. Raymundo has reviewed this note and agrees with this plan of care. This note was dictated using voice recognition software and make contain errors or omissions. All injections are used with Lidocaine or Bupivacaine and Depo Medrol.
== END 2024-04-12 23:59 | disposition home or self-care (01) ==
PROVIDERS: PCP Internal Medicine; Visit Provider Nurse Practitioner Family
DX: M47.816 Spondylosis without myelopathy or radiculopathy, lumbar region (principal); G89.29 Other chronic pain; M51.360 Other intervertebral disc degeneration, lumbar region with discogenic back pain only; Z73.89 Other problems related to life management difficulty
CPT/HCPCS: 99202; G0463

== ENCOUNTER 2024-07-12 10:30 | Outpatient (CLI) | payer MEDICARE, SELFPAY ==
[2024-07-12 20:07] LABS: Chol/HDL Ratio 2.2 (1-3.5); Cholesterol 132 mg/dl (140-200); HDL Cholesterol 59 mg/dl (40-60); Triglycerides 104 mg/dl (30-150); VLDL Cholesterol 21 mg/dL (0-40)
[2024-07-12 20:18] LABS: Direct LDL Cholesterol 56.52 mg/dL (100-129)
[2024-07-12 20:23] LABS: 25-OH Vitamin D, Total 34.7 ng/mL (30-100)
[2024-07-12 20:38] LABS: Prostate Specific Ag Screen 0.7 ng/ml (0.0-4.0)
[2024-07-12 22:29] LABS: Microalbumin/Creatinine Ratio 9.3
[2024-07-12 22:43] LABS: Creatinine,Urine Random 98 mg/dL (Not Estab.)
== END 2024-07-12 23:59 | disposition home or self-care (01) ==
LOC: LAB.DROPOF 07-14 12:52
PROVIDERS: PCP Internal Medicine; Visit Provider Internal Medicine
DX: E55.9 Vitamin D deficiency, unspecified (principal); E78.2 Mixed hyperlipidemia; Z12.5 Encounter for screening for malignant neoplasm of prostate; I10 Essential (primary) hypertension
CPT/HCPCS: 80061; 82043; 82306; 82570; G0103

== ENCOUNTER 2024-09-02 11:53 | Day surgery (SDC) | payer MEDICARE, SELFPAY ==
[2024-09-01 13:51] VITALS: BMI 32.4
[2024-09-02] MEDS: LACTATED RINGERS 1000ML 1,000 ML 50 ML IV (12:38)
[2024-09-02 12:41] VITALS: BP 155/96; PULSE 92; RESP 18; TEMP 36.4; O2SAT 93
--- NOTE | 2024-09-02 12:53 | EXP.ANES.CKL ---
[facility] Disclaimer: The information contained in this section may have been updated after the patient was seen, as this information can be updated by other users. Medical History Hyperlipemia Hypertension Chronic, continuous use of opioids Low back pain DDD (degenerative disc disease), lumbar Kidney stones Hyperlipidemia Screening for prostate cancer Generalized anxiety disorder History of 2019 novel coronavirus disease (COVID-19) Pulmonary fibrosis, unspecified Restrictive lung disease Multiple pulmonary nodules Screening for lung cancer COPD mixed type History of smoking 30 or more pack years Coronary artery disease Abnormal electrocardiogram [ECG] [EKG] COPD (chronic obstructive pulmonary disease) Hypertension Heart attack Surgical History History of tonsillectomy History of heart artery stent Hx of cardiac cath Family History Other COPD (chronic obstructive pulmonary disease) Social History Smoking Status: Former smoker smoking status stop date: 2013 alcohol intake: never substance use type: denies use current occupational status: other Travel in the last 8 weeks: None Have you lived/traveled outside US in past 30 days?: No Contact w/someone who lives/traveled outside US past 30 days?: No Exposure to someone with infectious disease in past 14 days?: No Do you have a fever (greater than 100.4 F or 38 C)?: No Have you tested positive for COVID-19: No Exposed to someone with COVID-19 in past 14 days?: No Do you have a sore throat?: No Do you have a cough?: No Do you have any weakness?: No Are you experiencing any nausea/vomitting?: No Do you have any diarrhea?: No Are you experiencing any unusual bleeding?: No Do you have any muscle aches/pain?: No Do you have any abdominal pain?: No Are you experiencing loss of taste or smell?: No [facility] Anesthesia Checklist Patient Identification Patient Identification: Arm Band and Verbal (Name & ) Structural Data Admitted From: Home Planned Operative Procedure/s: Colonoscopy Consent for Planned Operative Procedure(s) Verified: Yes Verified Documents: Surgical Consent NPO Status Verified Time NPO: 00:00 Chart Verification Results Verified: None Additional verifications Anesthesia Reactions: No Hx Blood Transfusions: No Blood Transfusion Reaction: No Airway Assessment Mallampati Score:: Class II C-Spine Mobility Assessed: Yes TMJ Mobility Assessed: No Dentition: Dentures-good fit (Removed top denture) Neurological Assessment Level of Consciousness: Awake, Alert and Appropriate Hx Seizures: No Numbness or tingling in extremities: No Anesthesia Plan Anesthesia Risk discussed: Yes Anesthesia Plan: Verified ASA Class: II Anesthesia Type: MAC
--- NOTE | 2024-09-02 14:16 | P.HP_ITS ---
History of Present Illness *Admission Date: 09/02/24 *Reason for visit:: Screening colonoscopy *History of present illness: Mr. Verma is a 63-year-old gentleman who is here for screening colonoscopy. His last colonoscopy was 10 years ago and he had polyps (unspecified) removed. The examination is deemed medically necessary for screening colonoscopy. The patient has been seen, interviewed and examined prior to the procedure by both myself and the anesthesia provider. [facility] Disclaimer: The information contained in this section may have been updated after the patient was seen, as this information can be updated by other users. Medical History (Updated 09/02/24 @ 14:46 by Marvel Villafuerte II, MD) Hyperlipemia Hypertension Chronic, continuous use of opioids Low back pain DDD (degenerative disc disease), lumbar Kidney stones Hyperlipidemia Screening for prostate cancer Generalized anxiety disorder History of 2019 novel coronavirus disease (COVID-19) Pulmonary fibrosis, unspecified Restrictive lung disease Multiple pulmonary nodules Screening for lung cancer COPD mixed type History of smoking 30 or more pack years Coronary artery disease Abnormal electrocardiogram [ECG] [EKG] COPD (chronic obstructive pulmonary disease) Hypertension Heart attack Surgical History History of tonsillectomy History of heart artery stent Hx of cardiac cath Family History Other COPD (chronic obstructive pulmonary disease) Social History Smoking Status: Former smoker smoking status stop date: 2013 alcohol intake: never substance use type: denies use current occupational status: other Travel in the last 8 weeks: None Have you lived/traveled outside US in past 30 days?: No Contact w/someone who lives/traveled outside US past 30 days?: No Exposure to someone with infectious disease in past 14 days?: No Do you have a fever (greater than 100.4 F or 38 C)?: No Have you tested positive for COVID-19: No Exposed to someone with COVID-19 in past 14 days?: No Do you have a sore throat?: No Do you have a cough?: No Do you have any weakness?: No Are you experiencing any nausea/vomitting?: No Do you have any diarrhea?: No Are you experiencing any unusual bleeding?: No Do you have any muscle aches/pain?: No Do you have any abdominal pain?: No Are you experiencing loss of taste or smell?: No Other Medical History Have you received the Flu Vaccine for this season: No Have you received the Pneumonia Vaccine: No Review of Systems Review of Systems Review of systems (narrative): Negative *Cardiovascular Comments: Negative *Gastrointestinal Comments: Negative *Genitourinary Comments: Negative *Musculoskeletal Comments: Negative *Neurologic Comments: Negative Meds Home Medications and Allergies Home Medications ?Medication ?Instructions ?Recorded ?Confirmed ?Type aspirin 81 mg tablet,delayed 81 mg PO DAILY CAD 07/09/21 09/01/24 History release (Adult Aspirin Regimen) albuterol sulfate 90 mcg/actuation 1 inh inhalation QID Breathing 10/30/21 09/01/24 History aerosol inhaler problems ipratropium 0.5 mg-albuterol 3 mg 3 ml inhalation QID PRN shortness 05/19/23 09/01/24 Rx (2.5 mg base)/3 mL nebulization of breath or wheezing #180 mL soln cholecalciferol (vitamin D3) 25 25 mcg PO DAILY #30 caps 06/03/23 09/01/24 Rx mcg (1,000 unit) capsule nitroglycerin 0.4 mg sublingual 0.4 mg sublingual Q5M PRN chest 11/06/23 09/01/24 Rx tablet (Nitrostat) pain #30 tabs fexofenadine 60 mg tablet (Emily 60 mg PO BID 12/22/23 09/01/24 History Allergy) famotidine 40 mg tablet 40 mg PO DAILY 02/11/24 09/01/24 History losartan 50 mg tablet 50 mg PO BID 90 days #180 tabs 04/29/24 09/01/24 Rx metoprolol tartrate 25 mg tablet 25 mg PO DIRECTED #90 tabs 06/29/24 09/01/24 Rx rosuvastatin 40 mg tablet See Rx Instructions .Route 07/26/24 09/01/24 Rx .COMPLEX #90 tabs oxycodone-acetaminophen 10 mg-325 1 tab PO QID PRN pain #120 tabs 08/21/24 09/01/24 Rx mg tablet New Prescriptions to Start Prescriptions: Allergies Allergy/AdvReac Type Severity Reaction Status Date / Time Sulfa (Sulfonamide Allergy Intermediate Rash Verified 09/02/24 12:40 Antibiotics) Exam Data for Last 24 hours Vital signs and Labs for Last 24 Hours: Temp Pulse Resp BP Pulse Ox O2 Del Method 97.5 F L 92 H 18 155/96 H 93 L Room Air 09/02/24 12:41 09/02/24 12:41 09/02/24 12:41 09/02/24 12:41 09/02/24 12:41 09/02/24 12:41 I & O for Last 24 hours: Intake & Output 08/30/24 08/31/24 09/01/24 09/02/24 23:59 23:59 23:59 23:59 Weight 226 lb *Routine HEENT Exam Head: Present normocephalic Eye: Present EOMI and PERRL ENT: Present mucous membranes moist *Routine Neck Exam Neck: Present supple *Routine Respiratory Exam Respiratory: Present CTA bilaterally *Routine Cardiovascular Exam Cardiovascular: Present RRR *Routine Abdominal Exam Abdominal: Present soft and normoactive bowel sounds; Absent tenderness *Routine Rectal Exam Rectal:: deferred *Routine Genitalia Exam Genitalia:: deferred *Routine Extremities Exam Extremities: Absent cyanosis, clubbing or edema *Routine Skin Exam Skin: Present warm; Absent rash *Routine Neurological Exam Neurological: Present alert and oriented X3 Assessment and Plan *Assessment and plan (1) Screening for colon cancer: Status: Acute Category: Medical Code(s): Z12.11 - Encounter for screening for malignant neoplasm of colon (2) Personal history of colon polyps, unspecified: Status: Acute Category: Medical Code(s): Z86.0100 - Personal history of colon polyps, unspecified Plan A/P: 1. Personal history of colon polyps (unspecified) and screening colonoscopy is the preprocedural diagnosis. His last colonoscopy was 10 years ago the patient will be anesthetized/sedated using MAC sedation. The patient has been seen and examined. Cardiac and lung assessment prior to the examination is stable. Proceed with planned screening colonoscopy.
[2024-09-02 14:24] VITALS: O2SAT 99
--- NOTE | 2024-09-02 14:46 | P.PCN_ITS ---
[facility] Procedure Note Date: 09/02/24 Time: 14:49 Procedure Note:: Colonoscopy Procedure Report: Colonoscopy with cold snare polypectomy Endoscopist: Marvel Villafuerte II, MD Referring physician: Cilnt García MD Date of Procedure: September 02, 2024 Equipment: Olympus 190 variable stiffness pediatric colonoscope Sedation: MAC sedation Indication: Mr. Verma is a 63-year-old gentleman who is here for follow-up screening/surveillance colonoscopy. His last colonoscopy was 10 years ago and he does state that he had polyps removed (unspecified). The patient reports no abdominal pain, weight loss, change in his bowel habits or rectal bleeding. He reports no family history of colon cancer. Procedure: Prior to the procedure, a history and physical exam was performed, and patient's medications and allergies were reviewed. The risks, benefits and alternatives of the sedation and procedure were discussed with the patient. All questions were answered and informed consent was obtained. The patient was brought to the procedure room. Patient identification and proposed procedure were verified by the physician and the nurse. The patient was placed in a left lateral decubitus position and the scope was passed under direct vision. Throughout the procedure, the patient's blood pressure, pulse, and oxygen saturations were monitored continuously. The colonoscopy was accomplished without difficulty. The patient tolerated the procedure well. Findings: On digital rectal examination there was normal rectal tone. There were no external hemorrhoids. The colonoscope was introduced through the anal canal to the rectum and advanced to the cecum. The ileocecal valve and appendiceal orifice were identified. The scope was advanced a short distance into the ileum which appeared grossly normal. The scope was then withdrawn into the colon. There were 13 colon polyps (ascending x 2 (4 and 8 mm), descending x 1 (3 mm), sigmoid x 6 (3, 4, 4, 5, 7 and 8 mm) and rectosigmoid x 4 (3, 3, 5 and 9 mm)). These were all removed via cold snare polypectomy. The remaining cecum, ascending, transverse, descending, sigmoid and rectum were grossly normal. There were no mucosal abnormalities identified. Upon retroflexion within the rectum there were grade 2 internal hemorrhoids. The preparation was excellent throughout with Mead Preparation Score of 9. The cecal time was 14 minutes. Impression: 1. Colonic polyps x 13 (ranging in size from 3 to 9 mm) 2. Grade 2 internal hemorrhoids Plan: I will follow-up the polyp histology and recommend repeat surveillance colonoscopy again in 3 years.
[2024-09-02 14:49] VITALS: BP 106/60; PULSE 79; RESP 17; TEMP 36.6; O2SAT 96
[2024-09-02 14:59] VITALS: BP 113/70; PULSE 75; RESP 17; O2SAT 95
[2024-09-02 15:09] VITALS: BP 119/76; PULSE 74; RESP 17; O2SAT 96
[2024-09-02 15:19] VITALS: BP 127/70; PULSE 69; RESP 17; O2SAT 95
== END 2024-09-02 15:38 | disposition home or self-care (01) ==
PROVIDERS: PCP Family Medicine; Visit Provider Internal Medicine Gastroenterology
PROC: 0DJD8ZZ Inspection of Lower Intestinal Tract, Via Natural or Artificial Opening Endoscopic (ICD-10-PCS; CPT 45378; principal; 2024-09-02 13:30)
DX: D12.7 Benign neoplasm of rectosigmoid junction (principal); D12.2 Benign neoplasm of ascending colon; D12.4 Benign neoplasm of descending colon; D12.5 Benign neoplasm of sigmoid colon; K64.1 Second degree hemorrhoids; Z12.11 Encounter for screening for malignant neoplasm of colon; Z86.0100 Personal history of colon polyps, unspecified
CPT/HCPCS: 45385; J7120

== ENCOUNTER 2024-11-19 10:15 | Outpatient (CLI) | payer MEDICARE, SELFPAY ==
[2024-11-19 14:54] LABS: Alanine Aminotransferase 24 U/L (12-78); Albumin Level 4.3 g/dl (3.5-5.0); Albumin/Globulin Ratio 1.6 (1.1-1.8); Alkaline Phosphatase 86 U/L (38-126); Anion Gap 16.3 mEq/L (5-15); Aspartate Amino Transferase 26 U/L (17-59); Bilirubin,Total 0.8 mg/dl (0.2-1.3); Blood Urea Nitrogen 20 mg/dl (9-20); Calcium 9.5 mg/dl (8.4-10.2); Carbon Dioxide 26 mmol/L (22.0-30.0); Chloride 103 mmol/L (98-107); Cholesterol 119 mg/dl (140-200); Creatinine,Serum 1.00 mg/dl (0.66-1.25); Estimated Glomerular Filt Rate 76 ml/min (>60); GFR (African American) 92 ML/MIN (>60); Globulin 2.7 g/dL (1.3-3.2); Glucose 91 mg/dl (74-100); HDL Cholesterol 47 mg/dl (40-60); Potassium 4.3 mmoL/L (3.5-5.1); Sodium 141 mmol/L (136-145); Total Protein,Serum 7.0 g/dl (6.3-8.2); Triglycerides 136 mg/dl (30-150)
== END 2024-11-19 23:59 | disposition home or self-care (01) ==
LOC: LAB.DROPOF 11-22 10:16
PROVIDERS: PCP Family Medicine; Visit Provider Family Medicine
DX: I10 Essential (primary) hypertension (principal); E78.2 Mixed hyperlipidemia
CPT/HCPCS: 80053; 80061

== ENCOUNTER 2025-03-23 14:02 | Outpatient (CLI) | payer MEDICARE, SELFPAY ==
--- NOTE | 2025-03-23 14:07 | CT_ITS ---
FINAL REPORT CLINICAL HISTORY: SOB former smoker. quit 11 years ago. 2-3 ppd for 35 years COMPARISON: 02/20/2024 FINDINGS: CT CHEST LOW DOSE SCREENING HISTORY: Screening exam for lung cancer. DOSE: CTDI vol: 2.90 mGy, DLP: 97.68 mGy*cm TECHNIQUE: Axial CT without IV contrast administration using low dose protocol. This study was performed with techniques to keep radiation doses as low as reasonably achievable, (ALARA). Individualized dose reduction techniques using automated exposure control or adjustment of mA and/or kV according to the patient's size were employed. No acute lung disease is present. Nodules tiny clustered nodules seen within the lateral right middle lobe on images 48 through 50 of series 4 are stable and considered postinflammatory. No new nodules identified. There is evidence of old calcified granulomatous disease. No pleural or pericardial effusion is seen. No adenopathy or mass lesion is present. IMPRESSION: Stable pulmonary nodules. LUNG RADS CATEGORY 2 RECOMMENDATION: 12 month LDCT follow up Reviewed, Interpreted and Dictated by Alice Bejarano MD Transcribed by Michelle Rocha Authenticated and . [facility]
--- OUTSIDE RECORDS SUMMARY | 2025-03-23 14:19 | XMS_ITS | Clinical Summary ---
Author Organization [facility] Address [address] [place] [address] Care Team Providers Care Sleeve Fixer Name Role Phone Massimo Soto MD Primary Care Provider [phone] Allergies Active Allergy Reactions Criticality Noted Date Comments Sulfa Antibiotics Other (See Comments) 07/23/19 17 UNKNOWN REACTION Medications oxyCODONE-aceta minophen (PERCOCET) 10-325 MG per tablet Take 1.5 tablets by mouth Every 6 (Six) Hours As Needed for moderate pain (4-6). Active gabapentin (NEURONTIN) 300 MG capsule Take 300 mg by mouth 2 (Two) Times a Day. Active simvastatin (ZOCOR) 20 MG tablet Take 20 mg by mouth Every Night. Active tamsulosin (FLOMAX) 0.4 MG capsule 24 hr capsule Take 1 capsule by mouth Every Night. Active metoprolol tartrate (LOPRESSOR) 25 MG tablet Take 12.5 mg by mouth 2 (Two) Times a Day. Active losartan (COZAAR) 50 MG tablet Take 25 mg by mouth 2 (Two) Times a Day. Active aspirin 81 MG EC tablet Take 81 mg by mouth Daily. Active nitroglycerin (NITROSTAT) 0.[address] 0.4 mg under the tongue Every 5 (Five) Minutes As Needed for chest pain. Take no more than 3 doses in 15 minutes. Active Social History Tobacco Use Types Packs/Day Years Used Date Smoking Tobacco: Former Cigarettes Q uit: 09/09/2013 Smokeless Tobacco: Never Alcohol Use Standard Drinks/Week Comments No 0 (1 standard drink = 0.6 oz pur e alcohol) Abuse Screen Answer Date Recorded Unsafe at Home or Work/School Not on file 10 /02/2023 Feels Threatened by Someone? Not on file 02/2023 Does Anyone Keep You from Co ntacting Others or Doint Things Outside the Home? Not on file 02/18/2023 Physical Sign of Abuse Present Not on file 1 Housing Stability Answer Date Recorded Current Living Arrangements Not on file 02/09 Potentially Unsafe Housing Conditions Not on idania e 02/18/2023 Family and Community Support Answer Supa e Recorded Help with Day-to-Day Activities Not on file 02/18/2023 Lonely or Isolated Not on file 02/18/2023 Employment Answer Date Recorded Do you want help finding or keeping work or a rocky b? Not on file 02/18/2023 Disabilities Answer Date Recorded Concentrating, Remembering, or Making Decisions Difficulty Not on file 02/18/2023 Doing Errands Independently Difficulty Not on fi le 02/18/2023 Education Answer Date Recorded Help with school or training? Not on file Preferred Language Not on file 02/18/2023 Sex and Gender Information Value Date Recorded Sex Assigned at Not on file Legal Sex Male 1:41 PM EDT Gender Identity Not on file Sexual Orientation Not on file Last Filed Vital Signs Vital Sign Reading Time Taken Comments Blood Pressure 103/72 07/22/2016 5:30 PM EDT Post Ambulation Blood Pressure. Pulse 78 07/22/2016 5:30 PM EDT Temperature 36.4 C (97.6 F) 07/22/2016 11:45 AM EDT Respiratory Rate 18 07/22/2016 3:42 PM EDT Oxygen Saturation 96% 07/22/2016 5:3 0 PM EDT Inhaled Oxygen Concentration - - Weight 99.6 kg (219 lb 9.3 oz) 07/22/2016 11:45 AM EDT Height 177.8 cm (5' 10 ) 07/22/2016 11: 45 AM EDT Body Mass Index 31.51 07/22/2016 11:45 AM EDT Plan of Treatment Health Maintenance Due Date Last Done Comments ANNUAL PHYSICAL 1960 HEPATITIS C SCREENING 1962 TDAP/TD VACCINES (1 - Tdap) 1981 COLOGUARD 12/19/2007 COLON CANCER SCREENING 5 YEAR SIGMOIDOSCOPY 12/19/2007 COLONOSCOPY 12/19/2007 COLORECTAL CANCER SCREENING 12/19/2007 CT COLONOGRAPHY 12/19/2007 FECAL OCCULT BLOOD TEST 12/19/2007 FIT Testing (1 year) 12/19/2007 Pneumococcal Vaccine 50+ (1 of 1 - PCV) 2012 ZOSTER VACCINE (1 of 2) 2012 INFLUENZA VACCINE 12/10/2024 Insurance Advance Directives * Full Code (Latest Code Status on File) Date Activated Date Inactivated Comments 07/22/2016 3:55 PM 07/22/2016 8:26 PM Care Teams Sleeve Fixer Relationship Specialty Start Date End Date Massimo Soto MD [id number] [place] [address] PCP - General Family Medicine 07/15/16
[2025-03-23] MEDS: IPRATROPIUM/ALBUTEROL 3 ML NEB IH (15:06)
== END 2025-03-23 23:59 | disposition home or self-care (01) ==
LOC: RAD 14:03
PROVIDERS: PCP Family Medicine; Visit Provider Internal Medicine Pulmonary Disease
DX: J44.9 Chronic obstructive pulmonary disease, unspecified (principal); R91.8 Other nonspecific abnormal finding of lung field; R94.2 Abnormal results of pulmonary function studies; F17.210 Nicotine dependence, cigarettes, uncomplicated; Z12.2 Encounter for screening for malignant neoplasm of respiratory organs
CPT/HCPCS: 71271; 94060; 94618; 94726; 94729